=== PATIENT | female | born 1975 | race Hispanic/Latino ===

== ENCOUNTER 2018-01-04 10:14 | Emergency (ER) | payer SELFPAY | END 2018-01-04 10:56 | disposition home or self-care (01) | LOC: EDH 10:14 | DX: L72.3 Sebaceous cyst (principal); Z87.891 Personal history of nicotine dependence ==

== ENCOUNTER → 2022-09-27 | Emergency (ER) | payer OTHER ==
[~2022-09-27] VITALS: Ht 165.1 cm; Wt 90.7 kg
[2022-09-27 10:28] VITALS: BP 124/76; PULSE 86; RESP 16
== END ==
LOC: EDH 10:27
DX: J02.9 Acute pharyngitis, unspecified (principal); Z53.21 Procedure and treatment not carried out due to patient leaving prior to being seen by health care provider
CPT/HCPCS: 99281

== ENCOUNTER 2023-01-18 08:44 | Emergency (ER) | payer OTHER ==
[~2023-01-18] VITALS: Ht 165.1 cm; Wt 95.7 kg
[2023-01-18] MEDS ORDERED: ONDANSETRON 4MG INJ IVP ONE (09:00)
[2023-01-18] MEDS ORDERED: FAMOTIDINE 20MG VIAL IV ONE (09:00)
[2023-01-18 09:24] LABS: BASOPHILS # (AUTO) 0.02 K/uL (0.00-0.20); BASOPHILS % (AUTO) 0.2 % (0.0-5.0); EOSINOPHILS # (AUTO) 0.43 K/uL (0.00-0.70); EOSINOPHILS % (AUTO) 4.8 % (0.0-8.0); HEMATOCRIT 42.3 % (36-48); IMMATURE GRANULOCYTE ABSOLUTE 0.04 K/uL (0-1); LYMPHOCYTES # (AUTO) 1.8 K/uL (1.0-4.8); LYMPHOCYTES % (AUTO) 20.5 % (21.0-51.0); MEAN CORPUSCULAR HGB CONC 33.6 g/dL (32.0-36.0); MEAN CORPUSCULAR VOLUME 83.4 fL (79-99); MONOCYTES # (AUTO) 0.4 K/uL (0.1-1.0); MONOCYTES % (AUTO) 4.8 % (3.0-13.0); NEUTROPHILS # (AUTO) 6.2 K/uL (1.8-7.7); NEUTROPHILS % (AUTO) 69.3 % (40.0-77.0); PLATELET COUNT (AUTO) 277 K/uL (130-400); RED BLOOD CELL COUNT(AUTO) 5.07 MIL/uL (4.00-5.50); RED CELL DISTRIBUTION WIDTH 12.7 % (11.0-15.5)
[2023-01-18 09:32] LABS: APPEARANCE,URINE CLEAR (CLEAR); BILIRUBIN,URINE NEGATIVE (NEGATIVE); COLOR,URINE LIGHT-YELLOW (YELLOW); GLUCOSE, URINE (UA) NEGATIVE (NEGATIVE); KETONES,URINE NEGATIVE (NEGATIVE); LEUKOCYTE ESTERASE ,URINE NEGATIVE Leu/uL (NEGATIVE); NITRATE,URINE NEGATIVE (NEGATIVE); OCCULT BLOOD,URINE NEGATIVE (NEGATIVE); PROTEIN,URINE NEGATIVE (NEGATIVE); UROBILINOGEN,URINE 0.2 mg/dL (0.2-1.0)
[2023-01-18 09:56] LABS: CREATININE 0.8 mg/dL (0.5-1.5); POTASSIUM 3.9 mmol/L (3.5-5.1)
[2023-01-18 10:01] LABS: ALBUMIN 3.5 g/dL (3.5-5.0); BILIRUBIN,TOTAL 0.3 mg/dL (0.2-1.0)
[2023-01-18 11:02] LABS: ADD UA MICROSCOPIC NO
[2023-01-18 11:36] VITALS: BP 154/101; PULSE 62; RESP 18; O2SAT 97
[2023-01-18] MEDS ORDERED: ONDA4TAB10 PO (11:57)
[2023-01-18] MEDS ORDERED: FAMO-136 PO (11:57)
== END 2023-01-18 12:09 | disposition home or self-care (01) ==
LOC: EDH 08:44
DX: K29.00 Acute gastritis without bleeding (principal); R11.2 Nausea with vomiting, unspecified; R07.89 Other chest pain; Z98.890 Other specified postprocedural states
CPT/HCPCS: 99284; 96374; 96375; 80053; 83690; 85025; 81003; 81025; 36415; J3490; J2405

== ENCOUNTER 2024-12-14 21:07 | Emergency (ER) | payer BC ==
[~2024-12-14] VITALS: Ht 160 cm; Wt 92.1 kg
[~2024-12-14 21:07] MED LIST: FAMO-136 PO; ONDA-243 PO
[2024-12-14] MEDS ORDERED: CLIN-141 PO (21:47)
--- NOTE | 2024-12-14 21:53 | ERN ---
General Chief Complaint: Other Problems Stated Complaint: C/O PAIN, REDNESS, SWELLING TO NOSE X 2 DAYS Time Seen by MD: 21:36 Time Seen by Midlevel: 21:36 Source: patient History of Present Illness Initial Comments 49 year old female presents to the emergency department for evaluation of an abscess to her left naris. She was seen at a local freestanding ER two days ago where she was prescribed fluticasone and Augmentin with no improvement. Allergies: Coded Allergies: No Known Allergies (Unverified Allergy, Unknown, 09/27/22) Home Meds Active Scripts Ketorolac Tromethamine (Ketorolac Tromethamine) 10 Mg Tablet, 1 TAB PO TID for pain for 5 Days, #15 TAB 0 Refills Prov:DIOR FISH [facility] 12/14/24 Clindamycin HCl (Clindamycin HCl) 300 Mg Capsule, 1 CAP PO TID for 10 Days, #30 CAP 0 Refills Prov:DIOR FISH [facility] 12/14/24 Ondansetron (Ondansetron Odt) 4 Mg Tab.rapdis, 4 MG PO TID PRN for NAUSEA, #15 TAB 0 Refills Prov:MANUEL HERNANDEZ MD 01/18/23 Famotidine (Pepcid) 20 Mg Tablet, 20 MG PO BID for 10 Days, #7 TAB 0 Refills Prov:MANUEL HERNANDEZ MD 01/18/23 Past Medical History Past Medical History: No Pertinent History Past Surgical History: None ROS Dictation CONSTITUTIONAL: Negative except for HPI HEAD/FACE: Negative except for HPI EENT: Negative except for HPI RESPIRATORY: Negative except for HPI GASTROINTESTINAL/ABDOMINAL: Negative except for HPI GENITOURINARY: Negative except for HPI MUSCULOSKELETAL: Negative except for HPI INTEGUMENTARY: Negative except for HPI NEUROLOGICAL/PSYCH: Negative except for HPI HEMATOLOGIC/LYMPHATIC: Negative except for HPI All Systems Negative, Except as noted above. 13 point review of systems assessed and all negative except for above. Physical Exam Physical Exam Dictation Vital Signs reviewed General Appearance: Alert, oriented x 3, no acute distress, well developed, nourished. Head and Face: non-traumatic. Eyes: PERRL, pink conjunctivas, eyelid no trauma, anterior chamber with arcus senilis. Ears: Pinnas intact and no signs of trauma or erythema ear canals clear and no discharge TM no erythema Nose: Abscess to the left nares Oropharynx: Mouth normal, tongue pink, pharynx clear,no erythema, tonsils no exudates, no abscesses noted, mucous membrane moist Neck: Supple, non-tender, no thyromegaly, no masses, no JVD, no bruits Breast:Deferred Chest:No tenderness, no crepitus, no paradoxical movement, no retractions Lungs:Clear, well-ventilated, symmetric, no rales, no wheezing, no rhonchi, no stridor, good breath sounds bilaterally Heart: Regular rate, regular rhythm, no murmur, no gallops Vascular: no peripheral edema, Abdomen: Soft, positive bowel sounds, nondistended, no guarding, nontender, no rebound, no masses no hepatomegaly, no splenomegaly, no Novak's sign, no hernias. Rectal: Deferred Genital: Deferred Neurological: Normal speech, motor function intact, sensory function intact Musculoskeletal: Neck nontender, full range of motion, back nontender, full range of motion, Extremities: nontender, full range of motion Skin: Color pink, dry, no turgor, no rash, no lacerations, no abrasions, no contusions. Lymphatic: Deferred MDM MDM: 49 year old female presents to the emergency department for evaluation of an abscess to her left naris. She was seen at a local freestanding ER two days ago where she was prescribed fluticasone and Augmentin with no improvement. On physical examination the patient has an abscess to the left naris. We attempted a needle aspiration with no fluid return. We added clindamycin to her antibioti c regimen and was advised to follow up with the ENT for further evaluation. Differential diagnosis: Abscess, cellulitis, There are no social concerns with this patient. Prescription drug management Prescriptions will include: Clindamycin, ketorolac Medical management and examination interpretation discussions were had by me with other qualified healthcare professionals as indicated for the patient's care. ED Course Orders Procedure Category Date Status Time Lidocaine/Prilocaine PHA 12/14/24 Complete (Emla) 21:30 Ketorolac PHA 12/14/24 Complete Tromethamine 30mg/Ml 22:00 Ceftriaxone 1g Vial PHA 12/14/24 Complete (Rocephine 1g Inj) 22:00 Vital Signs Date Time Temp Pulse Resp B/P (MAP) Pulse Ox O2 Delivery O2 Flow Rate FiO2 12/14/24 22:07 98.2 82 20 144/91 98 Room Air* 0 21 12/14/24 21:09 98.4 87 18 144/98 98 Room Air Incision and Drainage Incision and Drainage : Site: Left Mejia Blade Size: 18 gauge needle I & D Procedure: no betadine prepno sterile dressing applied DX & DISP Disposition: Discharge Departure Impression: Primary Impression: Abscess of nose Condition: Stable Scripts Ketorolac Tromethamine (Ketorolac Tromethamine) 10 Mg Tablet 1 TAB PO TID for pain for 5 Days, #15 TAB 0 Refills Prov: DIOR FISH PAC 12/14/24 Clindamycin HCl (Clindamycin HCl) 300 Mg Capsule 1 CAP PO TID for 10 Days, #30 CAP 0 Refills Prov: DIOR FISH PAC 12/14/24 Additional Instructions: Please follow up with ENT. Dr. Michael Oscar MD [address] [place] [address] Referrals: JHONY GORMAN MD (PCP) Time of Disposition: 21:48 I have reviewed the case, and I agree with, Diagnosis and Plan I performed the substantive portion of the visit. I have reviewed and personally made and approve the management plan that is documented in the note by myself or the BRYSON. I acknowledge for responsibility for the patient's management plan. DIOR FISH PAC Dec 14, 2024 21:53
[2024-12-14] MEDS ORDERED: KETO10TA2 PO (22:02)
[2024-12-14 22:07] VITALS: BP 144/91; PULSE 82; RESP 20; TEMP 98.3; O2SAT 98
[2024-12-14] MEDS: LIDOCAINE/PRILOCAINE CREAM 5GM TUBE TP ONE (22:16)
== END 2024-12-14 22:43 | disposition home or self-care (01) ==
LOC: EDH 21:07
DX: J34.0 Abscess, furuncle and carbuncle of nose (principal)
CPT/HCPCS: 99284; 10160; 96374; 96372; J1885; J0696; J3490